=== PATIENT | male | born 1980 | race Caucasian/White ===

== ENCOUNTER 2019-04-08 12:30 | Emergency (ER) | payer MEDICAID ==
[2019-04-08] MEDS: FLUORESCEIN STRIP RIGHT EYE (14:07)
[2019-04-08] MEDS: TETRACAINE 0.5% 4 ML OPH RIGHT EYE (14:07)
[2019-04-08] MEDS: ERYTHROMYCIN 1 GM OPH OINT RIGHT EYE (14:09)
[2019-04-08] MEDS ORDERED: SODIUM CHLORIDE 0.9% 1L IRRIG IRR (15:30)
== END 2019-04-08 15:35 | disposition home or self-care (01) ==
LOC: FTE 15:35
DX: H10.9 Unspecified conjunctivitis (principal)
CPT/HCPCS: 99283; Z7502